=== PATIENT | female | born 2005 | race Caucasian/White ===

== ENCOUNTER 2024-03-30 08:04 | Emergency (ER) | payer BC, SELFPAY ==
[2024-03-30 08:09] VITALS: BP 124/70
[2024-03-30 09:02] VITALS: BMI 22.3
[2024-03-30 09:14] VITALS: BP 99/62
[2024-03-30 09:33] LABS: Hematocrit 37.6 % (37.0-47.0); Hemoglobin 12.7 g/dL (12.0-16.0); Mean Corp Hgb Conc. 33.8 g/dL (33.0-37.0); Mean Corpuscular Volume 82.8 fL (81.0-99.0); Mean Platelet Volume 10.6 fL (7.4-10.4); Platelet Count 257 10^3/uL (130-400); Red Blood Cell Count 4.54 10^6/uL (4.20-5.40); Red Cell Dist. Width 13.2 % (11.5-14.5); White Blood Cell Count 7.3 10^3/uL (4.8-10.8)
--- NOTE | 2024-03-30 09:34 | ED.GENMED ---
History of Present Illness
<Lawrence Dickerson MD, Resident - Last Filed: 03/30/24 10:08>
General
Chief Complaint: Anxiety
Source: patient
Time Seen by Provider: 03/30/24 08:19
History of Present Illness
History of Present Illness:
18-year-old female, Flavia Nicolas with past medical history of ADHD, anxiety, insomnia, asthma presented to the ER complaining of dizziness and nausea since morning. Patient attributes the symptoms from lack of sleep, reports that she was not
able to sleep from the past 2 days, not even for an hour. She reports taking trazodone for insomnia , started taking it since 3 days after visit with her psychiatrist. She mentions that her symptoms have worsened after taking trazodone and it did
not help with the sleep. Patient denies shortness of breath, chest pain, abdominal pain, fever/chills, vomiting episodes, weakness, numbness, tingling. No history of smoking, vaping, recent use of decongestants, albuterol, excess caffeine intake.
Patient mentioned that she took Zyrtec last night for her allergies.
Past History
<Lawrence Dickerson MD, Resident - Last Filed: 03/30/24 10:08>
Past History
ED Past Medical History: Asthma and Other (ADHD, anxiety, depression, insomnia)
Social History
Tobacco: Non-smoker
Alcohol: None
Drug: None
Personal: Single
Living: with family
Employment: Employed
Phy Exam
<Lawrence Dickerson MD, Resident - Last Filed: 03/30/24 10:08>
Physical Exam
Physical Exam:
GEN: Well appearing, NAD, WDWN
Eyes: PERRLA, EOMs intact, no scleral icterus
HENT: NCAT, oral mucosa moist, no JVD, no cervical adenopathy.
Lungs: CTAB, no wheezes, rales, rhonchi, normal chest wall excursion
Cardiac: RRR, no M/R/G. Radial pulses 2+ bilat
Abdomen: S, NT, ND, NABS, no masses or hepatosplenomegaly
Neuro: AO x 3, no focal deficits to BUE/BLE, normal sensation throughout
Psych: Calm, cooperative.
Course
<[facility] Dickerson MD, Resident - Last Filed: 03/30/24 10:08>
Orders/Labs/Results
Orders:
Orders
03/30/24 09:19
EKG [Electrocardiogram (*1)] Urgent
Reason for Study: Vertigo / Dizzy
Test Result ONCE
03/30/24 09:20
EKG- Treatment ONCE
03/30/24 09:21
CMP [Comprehensive Metabolic Panel] Urgent
Complete Blood Count/No Diff Urgent
HCG, Serum Qualitative Screen Urgent
Abnormal Lab Results
03/30/24
09:21
MPV 10.6 H fL
(7.4-10.4)
BUN 21 H mg/dl
(7-17)
Glucose 65 L mg/dl
(70-99)
03/30/24 09:21
03/30/24 09:21
Vital Signs
Initial and Last Documented VS:
Initial Vital Signs
Temp Pulse Resp BP Pulse Ox
36.7 C 84 20 124/70 100
03/30/24 08:09 03/30/24 08:09 03/30/24 08:09 03/30/24 08:09 03/30/24 08:09
Last Documented Vital Signs
Temp Pulse Resp BP Pulse Ox
36.7 C 73 16 100/57 100
03/30/24 08:09 03/30/24 10:15 03/30/24 10:15 03/30/24 10:15 03/30/24 10:15
<Lenin Wharton MD - Last Filed: 03/30/24 11:07>
Orders/Labs/Results
Orders:
Orders
03/30/24 09:19
EKG [Electrocardiogram (*1)] Urgent
Reason for Study: Vertigo / Dizzy
Test Result ONCE
03/30/24 09:20
EKG- Treatment ONCE
03/30/24 09:21
CMP [Comprehensive Metabolic Panel] Urgent
Complete Blood Count/No Diff Urgent
HCG, Serum Qualitative Screen Urgent
Abnormal Lab Results
03/30/24
09:21
MPV 10.6 H fL
(7.4-10.4)
BUN 21 H mg/dl
(7-17)
Glucose 65 L mg/dl
(70-99)
03/30/24 09:21
03/30/24 09:21
Vital Signs
Initial and Last Documented VS:
Initial Vital Signs
Temp Pulse Resp BP Pulse Ox
36.7 C 84 20 124/70 100
03/30/24 08:09 03/30/24 08:09 03/30/24 08:09 03/30/24 08:09 03/30/24 08:09
Last Documented Vital Signs
Temp Pulse Resp BP Pulse Ox
36.7 C 73 16 100/57 100
03/30/24 08:09 03/30/24 10:15 03/30/24 10:15 03/30/24 10:15 03/30/24 10:15
<Lawrence Dickerson MD, Resident - Last Filed: 03/30/24 10:08>
MDM/Problems Addressed
Differential Diagnosis Includes:
Anxiety versus insomnia versus medication side effect.
MDM/Problems Addressed:
Patient is hemodynamically stable, afebrile. Routine labs CBC, CMP normal. (Except for mildly elevated BUN, 21 and glucose at 65)
She is stable to be discharged home.
Counselled her about sleep hygiene.
Will discharge her on Ambien.
Follow-up with primary care.
<Lawrence Dickerson MD, Resident - Last Filed: 03/30/24 10:08>
*Critical Care Note
Total Time (30-74mins, 75-104mins- exclusive of procedures): Not Applicable
<Lenin Wharton MD - Last Filed: 03/30/24 11:07>
*Pulse Oximetry
Patient hypoxic: no
*EKG
Interpreted by ED Provider?: Yes
Heart Rate: 72
Rate: normal
Rhythm: sinus
[place]: normal axis
Interval: short CT
QRS Pattern: normal QRS
Ischemia: no ischemia
*Critical Care Note
Total Time (30-74mins, 75-104mins- exclusive of procedures): Not Applicable
ED Attending Note
<Lawrence Dickerson MD, Resident - Last Filed: 03/30/24 10:08>
-
Portions of this chart may have been created with voice recognition software.� Occasional wrong word or��sound alike� substitutions may have occurred due to the inherent limitations of voice recognition software.
<Lenin Wharton MD - Last Filed: 03/30/24 11:07>
ED Attending Note
Patient seen and examined by attending physician: Yes
I performed a history and physical exam of patient and discussed management with resident, I reviewed resident's note and agree with documented findings and plan of care.: Yes
ED Attending Note:
I have seen and evaluated the patient with a [id number] encounter. I have spoken to the resident and involved in the medical history, the physical exam, medical decision making.
Evaluation and management service: agree unless noted differently below.
Results interpretation: agree unless noted differently below.
Focused HPI: 18-year-old female with a history of anxiety and panic disorder, asthma and chronic insomnia who presents to the emergency room for insomnia. Patient says that she has been dealing with insomnia for about 4 years. She says that she
has tried every nonmedical intervention including meticulous attention to her sleep hygiene. She says that she goes to bed around the same time every night (9:30 PM) and wakes up around the same time every morning (5:30 AM) for work. She says that
she avoid screen time for 2 hours prior to bedtime. She says that she will shower followed by skin care routine, followed by reading until she falls asleep. She also reports regular exercise. Despite these interventions she says she is struggled
with significant insomnia. She does have anxiety and panic and has been treated with Zoloft for the past few months which has improved her daytime anxiety but she is still having difficulty sleeping at night. For this reason she contacted a
psychiatrist and was started on trazodone 4 days ago at a dose of 50 mg nightly. Unfortunately she still has not been able to sleep and she reports that over the last 2 nights she has not slept at all. She says that when she does not sleep she
feels dizzy�she describes a 'brain fog' and extremely fatigued. She says that after 2 nights of not sleeping she decided to come to the emergency room for help. She denies regular caffeine use, denies smoking, denies alcohol, denies drug use.
Physical exam: Awake alert not in distress. Vital signs are normal. She has no cardiac rubs gallops or murmurs. Lungs clear to auscultation bilaterally. Abdomen nontender. No edema in extremities and good pulses in all extremities. No gross
neurologic deficits.
Medical Decision Makin-year-old female presents with acute on chronic insomnia. No acute trigger for her symptoms. Recently started on trazodone but has not noticed improvement. She seems to be pain close attention to her sleep hygiene, has
tried melatonin in the past in addition to nightly magnesium and recently trazodone but this has not helped. Her regular anxiety symptoms are managed quite well with Zoloft she says. I had a long discussion with the patient. We discussed all
possible options including trying to increase her daily exercise, avoiding sitting in her bed during the daytime, not laying in bed for prolonged periods if she is not able to sleep but instead getting up and reading for short period and then trying
again to go back to sleep later. She indicated that she has tried all these things and feels that it is not helping. I spoke to the patient about as needed sleep medications for episodes of severe insomnia, specifically Ambien�I explained to her
that there is a risk of dependency with these medications and the risk of abuse/misuse. I explained that at her young age hesitant to start her on a regular medication that could cause dependency or abuse and she shared these concerns however in
the acute setting she feels she needs relief. Will plan to prescribe a few tabs of low-dose Ambien for her to use in case of severe insomnia but I explained to her that she should follow-up with her psychiatrist to discuss other options for sleep
to avoid long-term use of this medication. She feels comfortable with this plan. She did have screening lab work sent in triage (she reported dizziness in triage, explains to me that it is more of a brain fog sensation related to lack of
sleep)�reviewed lab results with patient, no clinically significant abnormalities, her glucose was borderline low but she is taking p.o.
Discharge Plan
Departure
Patient Disposition: Home (Routine Discharge)
Patient with high blood pressure during this ER visit?: No
Discharge Problem:
Insomnia
Instructions: Insomnia (DC)
Prescriptions:
New
zolpidem [Ambien] 5 mg tablet
5 mg PO HS PRN (Reason: insomnia) Qty: 5 0RF
No Action
Albuterol Sulfate
2 inh inhalation Q4H PRN (Reason: SOB)
Magnesium
3 tab PO DAILY
Patient Comments:
unknown dose
Melatonin
5 mg PO DAILY
Vitamin D3:
1 tab PO DAILY
Patient Comments:
unsure of dose
Zyrtec:
10 mg PO DAILY
Referrals:
UNKNOWN - PT DOES,NOT KNOW [Family Provider] -
Activity Restrictions/Additional Instructions:
Thank you for visiting the Emergency Department at [facility].
1. Please schedule a follow up appointment as directed. Call first thing tomorrow morning to make an appointment.
2. If indicated, please take your medications as instructed and indicated on discharge paperwork.
3. If any of your symptoms do not improve, or persist, or become more severe within 6-12 hours, please return to the emergency department for further care.
4. Please return to the emergency department if you develop a headache, neck pain/stiffness, fever greater than 100.4F, chest pain, shortness of breath, persistent nausea, vomiting, slurred speech, difficulty walking, numbness/tingling, weakness,
signs of infection or any other symptoms that are worrisome to you.
Please call [phone] if you have any questions.
Interventions
Interventions:
*Risk Screen - Suicide Last Done: 03/30/24 09:01
*General Assessment Last Done: 03/30/24 09:01
*Neglect/Abuse Screening Last Done: 03/30/24 09:01
ED- Fall Risk Assessment Last Done: 03/30/24 09:03
*ED COVID-19 Vaccine History Last Done: 03/30/24 09:01
*Nursing Disposition Last Done: 03/30/24 10:15
ED- Neurological Assessment Last Done: 03/30/24 09:03
ED-Psychological Assessment Last Done: 03/30/24 09:03
ED-Suicide Risk Assessment Last Done: 03/30/24 09:06
Discharge Date and Time
Discharge Date/Time: 03/30/24 10:19
Print Language: BELARUSIAN
[2024-03-30 09:45] LABS: HCG, Serum Qualitative Screen Negative
[2024-03-30 09:48] LABS: ALT (SGPT) 18 U/L (0-35); AST (SGOT) 28 U/L (14-36); Albumin 4.5 g/dl (3.5-5.0); Alkaline Phosphatase 59 U/L (38-126); Blood Urea Nitrogen 21 mg/dl (7-17); Calcium 9.7 mg/dl (8.4-10.2); Carbon Dioxide 27 mmol/L (22-30); Chloride 105 mmol/L (98-107); Estimated Creatinine Clearance 98 ml/min; Glucose 65 mg/dl (70-99); Potassium 4.7 mmol/L (3.5-5.1); Sodium 138 mmol/L (135-145); Total Bilirubin 0.7 mg/dl (0.2-1.3); eGFR > 60.00
[2024-03-30 10:10] VITALS: BP 100/57
[2024-03-30 10:15] VITALS: BP 100/57
--- NOTE | 2024-03-30 10:17 | EDRN ---
Reviewed discharge instructions with patient. Verbalized understanding. Ambulated with steady gait to the lobby.
== END 2024-03-30 10:19 | disposition home or self-care (01) ==
LOC: EMR 08:04
PROVIDERS: EMERGENCY PHYSICIAN Emergency Medicine
DX: G47.00 Insomnia, unspecified (principal); F90.9 Attention-deficit hyperactivity disorder, unspecified type; F41.8 Other specified anxiety disorders; J45.909 Unspecified asthma, uncomplicated
CPT/HCPCS: 99283; 80053; 84703; 85027; 93005